=== PATIENT | female | born 1950 ===

== ENCOUNTER 2022-11-12 06:57 | Day surgery (SDC) | payer MEDICARE ==
[~2022-11-12] VITALS: Ht 175.3 cm; Wt 95.3 kg
[2022-11-12] MEDS ORDERED: OMEP20ER (07:41)
[2022-11-12] MEDS ORDERED: LOSA25 (07:41)
[2022-11-12] MEDS ORDERED: ASPI81CH (07:41)
--- NOTE | 2022-11-12 08:57 | NUR ---
11/12/22 0857 Urmila Ram PT SNORING & OBSTRUCTING, ORAL AIRWAY PLACED AT 0845. O2 SAT AT 92% AT LOWEST ON 3 L NC.
[2022-11-12 09:18] VITALS: BP 157/88
== END 2022-11-12 09:24 | disposition home or self-care (01) ==
LOC: ORSCSDS 06:57
PROVIDERS: Surgery
PROC: 0DBN8ZX Excision of Sigmoid Colon, Via Natural or Artificial Opening Endoscopic, Diagnostic (ICD-10-PCS; principal; 2022-11-12 08:30)
PROC: 0DBP8ZX Excision of Rectum, Via Natural or Artificial Opening Endoscopic, Diagnostic (ICD-10-PCS; principal; 2022-11-12 08:30)
PROC: 0DBL8ZX Excision of Transverse Colon, Via Natural or Artificial Opening Endoscopic, Diagnostic (ICD-10-PCS; principal; 2022-11-12 08:30)
DX: Z12.11 Encounter for screening for malignant neoplasm of colon (principal); Z86.010 Personal history of colon polyps; D12.3 Benign neoplasm of transverse colon; D12.5 Benign neoplasm of sigmoid colon; D12.8 Benign neoplasm of rectum; K57.30 Diverticulosis of large intestine without perforation or abscess without bleeding; I10 Essential (primary) hypertension; K21.9 Gastro-esophageal reflux disease without esophagitis; M81.0 Age-related osteoporosis without current pathological fracture; Z79.899 Other long term (current) drug therapy
CPT/HCPCS: 88305; J2704; J7120